=== PATIENT | female | born 1955 | race Caucasian/White ===

== ENCOUNTER 2023-01-31 15:08 | Outpatient (RCR) | payer MEDICARE, BC, SELFPAY | END 2023-02-02 07:51 | disposition home or self-care (01) | LOC: RPT 15:08 | PROVIDERS: ATTENDING PHYSICIAN Radiology Radiation Oncology; FAMILY PHYSICIAN Family Medicine | DX: C50.911 Malignant neoplasm of unspecified site of right female breast (principal); Z17.0 Estrogen receptor positive status [ER+]; Z73.6 Limitation of activities due to disability | CPT/HCPCS: 97140; 97530 ==

== ENCOUNTER 2023-04-03 11:19 | Outpatient (RCR) | payer MEDICARE, BC, SELFPAY | END 2023-04-03 23:59 | disposition home or self-care (01) | LOC: RPT 11:19 | PROVIDERS: ATTENDING PHYSICIAN Student in an Organized Health Care Education/Training Program; FAMILY PHYSICIAN Family Medicine | DX: M54.59 Other low back pain (principal); Z73.6 Limitation of activities due to disability | CPT/HCPCS: 97110; 97163; 97535 ==

== ENCOUNTER → 2023-05-08 06:24 | Day surgery (SDC) | payer MEDICARE, BC, SELFPAY | LOC: GI 06:24 | PROVIDERS: ATTENDING PHYSICIAN Internal Medicine Gastroenterology | DX: D50.0 Iron deficiency anemia secondary to blood loss (chronic) (principal); K62.5 Hemorrhage of anus and rectum; K64.0 First degree hemorrhoids | CPT/HCPCS: 45378 ==

== ENCOUNTER 2023-05-09 06:17 | Day surgery (SDC) | payer MEDICARE, BC, SELFPAY ==
[2023-05-09 08:50] VITALS: BMI 22.3
[2023-05-09 09:04] VITALS: BMI 22.3
[2023-05-09 09:05] VITALS: BP 100/56
[2023-05-09 11:31] VITALS: BP 120/52
[2023-05-09 11:45] VITALS: BP 92/71
== END 2023-05-09 12:00 | disposition home or self-care (01) ==
LOC: GI 06:17
PROVIDERS: ATTENDING PHYSICIAN Internal Medicine Gastroenterology
DX: D12.3 Benign neoplasm of transverse colon (principal); K51.90 Ulcerative colitis, unspecified, without complications; K63.89 Other specified diseases of intestine; K64.0 First degree hemorrhoids; D50.0 Iron deficiency anemia secondary to blood loss (chronic); K56.2 Volvulus; B37.81 Candidal esophagitis; K22.89 Other specified disease of esophagus; K31.89 Other diseases of stomach and duodenum; K31.7 Polyp of stomach and duodenum; Z79.01 Long term (current) use of anticoagulants
CPT/HCPCS: 45380; 43239; 88305; 88342

== ENCOUNTER 2023-05-09 12:09 | Emergency (ER) | payer MEDICARE, BC, SELFPAY ==
[2023-05-09] VITALS (8 sets, daily range): BP systolic 96–132; BP diastolic 40–79; BMI 21.5
--- NOTE | 2023-05-09 12:36 | ED.GENMED ---
History of Present Illness
<Samanta Love PA-C - Last Filed: 05/09/23 19:20>
General
Chief Complaint: Swelling
Source: patient and records
Exam Limitations: none
Time Seen by Provider: 05/09/23 12:33
Nursing documentation reviewed up to this point in time: agreed with
Travel History
Have you had any contact with someone who has COVID-19?: No
Do you have any symptoms of coronavirus? Fever > 100 degrees, chills, cough, shortness of breath, sore throat, loss of taste or smell, muscle aches, or headache?: No
History of Present Illness
History of Present Illness:
67-year-old female with past medical history of hypothyroidism, breast cancer, osteoarthritis presenting emergency department today with concerns of right shoulder pain following a fall. Patient fell yesterday morning while prepping for
colonoscopy. Patient states that she started to feel little bit dizzy and subsequently fell on her right side and hit her head. This happened another time later that day. Patient did not lose consciousness anytime. Patient had to have her
help her up off the ground. Patient currently denies any headache, any visual changes, any dizziness. Patient does note some upper right shoulder pain. 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
Patient is on Xarelto usually because of her history of her DVT in her right arm, however she recently stopped it the past few days due to the colonoscopy. Patient had a colonoscopy today because she has had new anemia that is being evaluated.
Patient was sent here today from GI office because of the appearance of her arm.
Past History
<Samanta Love PA-C - Last Filed: 05/09/23 19:20>
Past History
ED Past Medical History: Cancer (Recurrent breast CA 2000, 2007. Receives hormonal injections at this time. Last radiation treatment was in April), Hypothyroidism, Other (Tumor brachial plexus) and Other (DVT of right arm 3 years ago)
ED Past Surgical History: Other (Right mastectomy)
Social History
Tobacco: Non-smoker
Alcohol: None
Drug: None
Personal:
Living: with family
Family History
Family History: Other (Mother with colon cancer)
Review of Systems
<CLARA Lay Last Filed: 05/09/23 19:20>
Review of Systems
All Other Systems: ROS reviewed and negative except as documented in HPI and ROS
Phy Exam
<CLARA Lay Last Filed: 05/09/23 19:20>
Physical Exam
Physical Exam:
Vitals: Vital signs are stable
General: Patient well-appearing and in no acute distress
Skin: There is a small area of ecchymosis overlying the right humeral head. There is also a small superficial abrasion on the lateral aspect of the right upper arm.
Head: Normocephalic, no palpable hematomas
Eye: Small area of ecchymosis on the right lateral eye. EOMs intact, PERRLA.
Cardiac: Regular rate and rhythm, no murmur
Peripheral Vascular: cap refill <2 seconds
Respiratory: Normal respiratory effort, no wheezes, rales, rhonchi
Abdomen: No abdominal tenderness
Musculoskeletal: Patient has tenderness palpation over the right humeral head. Patient has chronic decreased sensation of her right lower arm due to her plexus tumor. Patient has full range of motion of her right elbow joint and right wrist, able
to wiggle fingers.
Neuro: AAOx3, CN II-XII intact.
Scores
<CLARA Lay Last Filed: 05/09/23 19:20>
Heart Failure Risk
Heart Failure Risk Score: Not Applicable
Course
<CLARA Lay Last Filed: 05/09/23 19:20>
Orders/Labs/Results
Orders:
Orders
05/09/23 12:54
CR Shoulder - Right Min 2 View Urgent
Comment:
Reason For Exam: right shoulder pain following fall
05/09/23 13:02
Type+Screen Urgent
Complete Blood Count/With Diff Urgent
Comprehensive Metabolic Panel Urgent
Magnesium Urgent
Urinalysis Reflex To Culture Urgent
05/09/23 13:03
PTT Urgent
Prothrombin Time Urgent
TSH Urgent
05/09/23 13:45
0.9% Sodium Chloride 250 ml [Nss] 250 ml IV BOLUS
05/09/23 14:17
Acetaminophen [Tylenol] 650 mg PO NOW STA
05/09/23 14:43
Orthostatic VS- Treatment ONCE
05/09/23 14:45
Potassium Chloride [KCl] 40 meq PO NOW STA
05/09/23 14:48
Potassium Chloride [KCl] 40 meq 0.9% Sodium Chloride 250 ml [Nss] 250 ml IV NOW
05/09/23 17:38
Ondansetron Injectable [Zofran] 4 mg IV NOW STA
05/09/23 19:36
Heparin Pf [Heparin Lock Flush] 500 unit .ROUTE .STK-MED ONE
05/09/23 19:37
Heparin Pf [Heparin Lock Flush] 500 unit IV NOW ONE
Abnormal Lab Results
05/09/23 05/09/23
13:02 13:03
RBC 2.70 L 10^6/uL
(4.20-5.40)
Hgb 9.4 L g/dL
(12.0-16.0)
Hct 27.7 L %
(37.0-47.0)
MCV 102.6 H fL
(81.0-99.0)
MCH 34.8 H pg
(27.0-31.0)
RDW 15.5 H %
(11.5-14.5)
MPV 10.5 H fL
(7.4-10.4)
Abs Immat Gran (auto) 0.1 H 10^3/uL
(0-0.05)
Absolute Lymphs (auto) 0.2 L 10^3/uL
(1.2-3.4)
Immature Gran % 0.7 H %
(0-0.5)
Neutrophils % 87.5 H %
(42.2-75.2)
Lymphocytes % 3.3 L %
(20.5-51.1)
PT 16.9 H Sec
(11.4-14.6)
APTT 82.9 H Sec
(23.4-35.0)
Potassium 2.3 L* mmol/L
(3.5-5.1)
BUN 5 L mg/dl
(7-17)
Creatinine 0.3 L mg/dL
(0.6-1.0)
Glucose 225 H mg/dl
(70-99)
Calcium 7.1 L mg/dl
(8.4-10.2)
Magnesium 2.6 H mg/dl
(1.6-2.3)
AST 55 H U/L
(14-36)
ALT 49 H U/L
(0-35)
Total Protein 5.4 L g/dl
(6.3-8.2)
Albumin 2.9 L g/dl
(3.5-5.0)
05/09/23 13:02
05/09/23 13:02
Vital Signs
Initial and Last Documented VS:
Initial Vital Signs
Temp Pulse Resp BP Pulse Ox
97.6 F 94 18 132/59 100
05/09/23 12:10 05/09/23 12:10 05/09/23 12:10 05/09/23 12:10 05/09/23 12:10
Last Documented Vital Signs
Temp Pulse Resp BP Pulse Ox
99.5 F 91 20 114/45 98
05/09/23 19:34 05/09/23 19:34 05/09/23 19:34 05/09/23 19:34 05/09/23 19:34
<Iván Walker MD - Last Filed: 05/09/23 19:42>
Orders/Labs/Results
Orders:
Orders
05/09/23 12:54
CR Shoulder - Right Min 2 View Urgent
Comment:
Reason For Exam: right shoulder pain following fall
05/09/23 13:02
Type+Screen Urgent
Complete Blood Count/With Diff Urgent
Comprehensive Metabolic Panel Urgent
Magnesium Urgent
Urinalysis Reflex To Culture Urgent
05/09/23 13:03
PTT Urgent
Prothrombin Time Urgent
TSH Urgent
05/09/23 13:45
0.9% Sodium Chloride 250 ml [Nss] 250 ml IV BOLUS
05/09/23 14:17
Acetaminophen [Tylenol] 650 mg PO NOW STA
05/09/23 14:43
Orthostatic VS- Treatment ONCE
05/09/23 14:45
Potassium Chloride [KCl] 40 meq PO NOW STA
05/09/23 14:48
Potassium Chloride [KCl] 40 meq 0.9% Sodium Chloride 250 ml [Nss] 250 ml IV NOW
05/09/23 17:38
Ondansetron Injectable [Zofran] 4 mg IV NOW STA
05/09/23 19:36
Heparin Pf [Heparin Lock Flush] 500 unit .ROUTE .STK-MED ONE
05/09/23 19:37
Heparin Pf [Heparin Lock Flush] 500 unit IV NOW ONE
Abnormal Lab Results
05/09/23 05/09/23
13:02 13:03
RBC 2.70 L 10^6/uL
(4.20-5.40)
Hgb 9.4 L g/dL
(12.0-16.0)
Hct 27.7 L %
(37.0-47.0)
MCV 102.6 H fL
(81.0-99.0)
MCH 34.8 H pg
(27.0-31.0)
RDW 15.5 H %
(11.5-14.5)
MPV 10.5 H fL
(7.4-10.4)
Abs Immat Gran (auto) 0.1 H 10^3/uL
(0-0.05)
Absolute Lymphs (auto) 0.2 L 10^3/uL
(1.2-3.4)
Immature Gran % 0.7 H %
(0-0.5)
Neutrophils % 87.5 H %
(42.2-75.2)
Lymphocytes % 3.3 L %
(20.5-51.1)
PT 16.9 H Sec
(11.4-14.6)
APTT 82.9 H Sec
(23.4-35.0)
Potassium 2.3 L* mmol/L
(3.5-5.1)
BUN 5 L mg/dl
(7-17)
Creatinine 0.3 L mg/dL
(0.6-1.0)
Glucose 225 H mg/dl
(70-99)
Calcium 7.1 L mg/dl
(8.4-10.2)
Magnesium 2.6 H mg/dl
(1.6-2.3)
AST 55 H U/L
(14-36)
ALT 49 H U/L
(0-35)
Total Protein 5.4 L g/dl
(6.3-8.2)
Albumin 2.9 L g/dl
(3.5-5.0)
05/09/23 13:02
05/09/23 13:02
Vital Signs
Initial and Last Documented VS:
Initial Vital Signs
Temp Pulse Resp BP Pulse Ox
97.6 F 94 18 132/59 100
05/09/23 12:10 05/09/23 12:10 05/09/23 12:10 05/09/23 12:10 05/09/23 12:10
Last Documented Vital Signs
Temp Pulse Resp BP Pulse Ox
99.5 F 91 20 114/45 98
05/09/23 19:34 05/09/23 19:34 05/09/23 19:34 05/09/23 19:34 05/09/23 19:34
<CLARA Lay Last Filed: 05/09/23 19:20>
MDM/Problems Addressed
Differential Diagnosis Includes:
Differentials include dehydration, anemia, humeral fracture, clavicle fracture
MDM/Problems Addressed:
Shoulder pain, anemia
Chronic conditions affecting care: HTN and Cancer
Acute Exacerbation and/or Progression of Chronic Illness: HTN and Cancer
<CLARA Lay Last Filed: 05/09/23 19:20>
*Critical Care Note
Total Time (30-74mins, 75-104mins- exclusive of procedures): Not Applicable
Data Reviewed
Review of Other/Old Records Reveals: Records (Reviewed ER physician documentation 03/13/17) and Operative Reports (Reviewed colonoscopy report)
Source: patient, records and family
<CLARA Lay Last Filed: 05/09/23 19:20>
Patient Management
Escalation/DeEscalation of care consider admission/obs:
67-year-old female with past medical history of hypothyroidism, breast cancer, osteoarthritis presenting emergency department today with concerns of right shoulder pain following a fall. Patient fell yesterday morning while prepping for
colonoscopy. Patient was sent here from GI office, patient had a colonoscopy today. GI office was concerned about patient's swollen right arm. Patient was found to have a right proximal humeral fracture, I spoke to orthopedist on-call who will
see patient later in in the week in office. Patient does have a shoulder immobilizer with her which she will wear. Here in the ER, she is also found to have an ANTOINETTE with hypokalemia. Patient was fluid resuscitated and given potassium. Patient GI
doctor updated, patient will follow-up with her PCP in a week to have her labs rechecked
<Samanta Love PA-C - Last Filed: 05/09/23 19:20>
Update Note
Update Note:
2:22 pm-- Spoke to patient, I inquired about patient's Xarelto, patient states that she can start her Xarelto back again right away. I advised patient to restart her xarelto tomorrow
3:16 pm--spoke to patient, regarding her low potassium levels and how she will stay for few more hours to replete her potassium.
ED Attending Note
<Samanta Love PA-C - Last Filed: 05/09/23 19:20>
-
Portions of this chart may have been created with voice recognition software.� Occasional wrong word or��sound alike� substitutions may have occurred due to the inherent limitations of voice recognition software.
<Iván Walker MD - Last Filed: 05/09/23 19:42>
ED Attending Note
Patient seen and examined by attending physician: Yes
ED Attending Note:
Patient presents to ED secondary to concern for worsening anemia, due to increased weakness and fatigue, which caused fall in the bathroom last night. Patient has had ongoing symptoms for the past 8 weeks and has been evaluated as outpatient,
including iron infusion as ordered by her oncologist at [facility]. Today, patient completed endoscopy and colonoscopy. In light of patient's fall along with ongoing symptoms, patient was referred to ED for further evaluation and treatment
by her vice president network development. Denies chest pain. Denies fever or chills. Denies recent illness. Denies vomiting or diarrhea. In order to prepare for her procedure today, patient has not had anything substantial to eat for the past 2 days. Patient
denies receiving blood transfusion in the past.
Physical Exam
General: no apparent distress, not acutely ill. afebrile. weak appearing.
Head: eomi. ecchymosis noted lateral to right eye and face, nontender.
Neck: supple. normal range of motion. normal posterior pharynx
Heart: s1/s2 regular rate and rhythm, no murmur. equal radial pulses.
Lungs: no acute respiratory distress. clear bilaterally
Abdomen: normal bowel sounds. not tender.
Neuro: alert and oriented. no focal neurological deficits
Skin: no rash
Psychiatric: well kept. interactive and cooperative
Extremities: left shoulder ecchymosis/tenderness noted. no calf tenderness. cap refill < 2 sec
Will check H/H along with shoulder x-ray.
No indication for CT head at this time, as patient currently has no symptoms and neurologically intact, w low impact mechanism to injury
H/H noted, improved from recent blood work. Pt already owns arm sling at home and an ongoing relationship with an orthopaedic surgeon, with whom she can f/u as an outpatient.
Hypokalemia noted - will replete and advise repeat blood work in 1-2 weeks.
Discharge Plan
Departure
Patient Disposition: Home (Routine Discharge)
Date of Disposition: 05/09/23
Time of Disposition: 18:30
Patient with high blood pressure during this ER visit?: Yes
Condition: Good
Discharge Problem:
Proximal humeral fracture, Acute hypokalemia
Instructions: Hypokalemia (DC), BLOOD PRESSURE
Prescriptions:
No Action
vitamin E (dl, acetate) 1,000 UNIT capsule
1,000 unit PO DAILY
Patient Comments:
05/09/2023, pt. stopped taking this vitamin in prep. for her procedure; will resume taking tomorrow per pt.
Xarelto 20 MG tablet
20 mg PO DAILY
Patient Comments:
05/09/2023, pt. stopped taking this med. in prep. for her procedure; will resume taking tomorrow per pt.
ascorbic acid (vitamin C) [Vitamin C] 1,000 mg Tablet
1,000 mg PO DAILY
polyethylene glycol 3350 [Miralax] 17 gram Powder In Packet
17 g PO DAILY PRN (Reason: constipation)
Theragen Tablet
1 tab PO BID
levothyroxine 50 mcg Tablet
50 mcg PO DAILY
ibuprofen 200 mg Tablet
400 mg PO BIDPRN PRN (Reason: mild pain)
nortriptyline 50 mg Capsule
50 mg PO HS
pregabalin 150 mg Capsule
150 mg PO TID
Patient Comments:
05/09/2023, pt. filled this med. on 04/09/2023 for 180 capsules per PDMP.
Visbiome 112.5 billion cell Capsule
1 cap PO DAILY
Xiidra 5 % Dropperette
1 drp BOTH EYES DAILY
Calcium + D3
2 tab PO .LUNCHTIME
Faslodex
1 dose IM QMONTH
Patient Comments:
05/09/2023, gets at [facility]; per pt., next dose is scheduled for tomorrow (05/10/2023).
Iron Infusion
1 dose IV QMONTH PRN (Reason: low iron)
Specialty Eye Drops
1 drp BOTH EYES QID
Patient Comments:
05/09/2023, pt. unsure of name of this eye drop but states that it is specifically compounded for them.
Referrals:
Ran Gonsalez MD [Active] - Call in 1-3 days for appt
Tai Alfaro MD [Family Provider] -
Activity Restrictions/Additional Instructions:
Please resume your Xarelto.
We have provided you with a referral for orthopedic doctor. Please call tomorrow to make an appointment for follow-up on your arm fracture. Please wear your shoulder immobilizer when ambulating. You can use Tylenol and Ibuprofen as needed for pain.
Please follow up with your primary care provider in one week to have a repeat basic metabolic panel.
Please return to the emergency department should you experience chest pain, shortness of breath, acute worsening of your arm pain, decrease sensation in your shoulder, pallor in your arm, fevers or chills, intractable vomiting, or other signs or
symptoms concerning to you.
Interventions
Interventions:
*Risk Screen - Suicide Last Done: 05/09/23 13:19
*General Assessment Last Done: 05/09/23 13:19
*Neglect/Abuse Screening Last Done: 05/09/23 13:19
*ED COVID-19 Vaccine History Last Done: 05/09/23 13:19
ED- Cardiac Assessment Last Done: 05/09/23 13:19
ED- Pulmonary Assessment Last Done: 05/09/23 13:19
ED-Skin Assessment Last Done: 05/09/23 13:19
[2023-05-09 13:23] LABS: % Basophils 0.3 % (0-2); % Immature Granulocytes 0.7 % (0-0.5); % Lymphocytes 3.3 % (20.5-51.1); % Monocytes 8.2 % (1.7-9.3); % Neutrophils 87.5 % (42.2-75.2); Absolute Immature Granulocytes 0.1 10^3/uL (0-0.05); Absolute Lymphocytes 0.2 10^3/uL (1.2-3.4); Absolute Monocytes 0.6 10^3/uL (0.1-0.6); Hematocrit 27.7 % (37.0-47.0); Hemoglobin 9.4 g/dL (12.0-16.0); Mean Corp Hgb Conc. 33.9 g/dL (33.0-37.0); Mean Corpuscular Hgb 34.8 pg (27.0-31.0); Mean Corpuscular Volume 102.6 fL (81.0-99.0); Mean Platelet Volume 10.5 fL (7.4-10.4); Nucleated Red Blood Cells % 0 %; Platelet Count 174 10^3/uL (130-400); Red Cell Dist. Width 15.5 % (11.5-14.5); White Blood Cell Count 6.9 10^3/uL (4.8-10.8)
[2023-05-09 13:28] LABS: PT 16.9 Sec (11.4-14.6)
[2023-05-09 13:30] LABS: APTT 82.9 Sec (23.4-35.0)
[2023-05-09] MEDS: NSS 250 IV (13:55)
[2023-05-09 14:34] LABS: TSH 2.82 uIU/ml (0.47-4.68)
[2023-05-09 14:42] LABS: ALT (SGPT) 49 U/L (0-35); AST (SGOT) 55 U/L (14-36); Albumin 2.9 g/dl (3.5-5.0); Alkaline Phosphatase 120 U/L (38-126); Blood Urea Nitrogen 5 mg/dl (7-17); Calcium 7.1 mg/dl (8.4-10.2); Carbon Dioxide 22 mmol/L (22-30); Chloride 106 mmol/L (98-107); Glucose 225 mg/dl (70-99); Magnesium 2.6 mg/dl (1.6-2.3); Potassium 2.3 mmol/L (3.5-5.1); Sodium 139 mmol/L (135-145); Total Bilirubin 0.7 mg/dl (0.2-1.3); Total Protein 5.4 g/dl (6.3-8.2); eGFR > 60.00
[2023-05-09] MEDS: TYLENOL 650 MG PO (14:50)
[2023-05-09] MEDS: KCL 40 MEQ PO (14:50)
[2023-05-09] MEDS: KCL 270 MEQ IV (15:05)
[2023-05-09] MEDS: ZOFRAN 4 MG IV (17:49)
--- NOTE | 2023-05-09 20:15 | VATNOTE ---
left subq port deaccessed per protocol however ED RN administered 500 units heparin prior to.
== END 2023-05-09 20:40 | disposition home or self-care (01) ==
LOC: EMR 12:09
PROVIDERS: Physician Assistant; EMERGENCY PHYSICIAN Emergency Medicine; FAMILY PHYSICIAN Family Medicine
DX: S42.201A Unspecified fracture of upper end of right humerus, initial encounter for closed fracture (principal); E87.6 Hypokalemia; M25.511 Pain in right shoulder; W19.XXXA Unspecified fall, initial encounter; E03.9 Hypothyroidism, unspecified; M19.90 Unspecified osteoarthritis, unspecified site; D64.9 Anemia, unspecified; I10 Essential (primary) hypertension; Z79.01 Long term (current) use of anticoagulants; Z80.0 Family history of malignant neoplasm of digestive organs; Z85.3 Personal history of malignant neoplasm of breast; Z86.718 Personal history of other venous thrombosis and embolism; Z90.11 Acquired absence of right breast and nipple; Z92.3 Personal history of irradiation
CPT/HCPCS: 99283; 96374; 96375; 96361; 73030; 80053; 83735; 84443; 85025; 85610; 85730; 86850; 86900; 86901